=== PATIENT | female | born 1995 | race Caucasian/White ===

== ENCOUNTER 2017-10-15 18:12 | Emergency (ER) | payer BC ==
[~2017-10-15] VITALS: Ht 160 cm; Wt 80.9 kg
[~2017-10-15 18:12] MED LIST: AMITRIPTYLINE H10 MG PO; BENTYL20 MG PO; Benadryl IV; Benadryl PO; DOXYCYCLINE HYC50 MG PO; FLEXERIL10 MG PO; INDERAL20 MG PO; MACROBID100 MG PO; MIRALAX17 GM PO; NAPROSYN375 MG PO; NAPROSYN500 MG PO; ONDANSETRON ODT4 MG PO; PERCOCET 5/31 TABLET PO; PHENERGAN25 MG PR; PROAIR HFA8.5 GM IH; PROMETHAZINE HC25 M1 PO; PROPRANOLOL HCL10 MG PO; TRAMADOL HCL50 MG PO; TRI-ESTARYLLA1 EACH PO; ZOFRAN ODT4 MG PO; ZOFRAN4 MG PO; predniSONE PO
[2017-10-15 18:45] LABS: HEMATOCRIT 43.2 % (36.0-46.0); HEMOGLOBIN 15.4 G/DL (11.9-15.5); MCH 30.9 PG (29.0-34.0); MCHC 35.6 G/DL (30.0-36.0); MCV 86.7 FL (83-99); PLATELET COUNT 260 K/uL (156-360); RBC DIS.WIDTH-CV 12.1 % (11.8-14.6); RBC DIS.WIDTH-SD 38.5 % (39-53); RED BLOOD COUNT 4.98 M/uL (3.80-5.20); WHITE BLOOD COUNT 6.3 K/uL (4.1-10.2)
[2017-10-15 18:54] LABS: ALBUMIN 4.6 g/dL (3.2-4.8)
[2017-10-15 18:55] LABS: CHLORIDE 106 mEq/L (99-109); POTASSIUM 3.4 mEq/L (3.7-5.4); SODIUM 141 mEq/L (136-147)
[2017-10-15 18:57] LABS: GLUCOSE 91 mg/dL (70-99); TOTAL PROTEIN 7.7 g/dL (6.4-8.3)
[2017-10-15 18:59] LABS: TOTAL BILIRUBIN 0.6 mg/dL (0.0-1.0)
[2017-10-15 19:00] LABS: ALKALINE PHOSPHATASE 108 IU/L (3-129)
[2017-10-15 19:01] LABS: CREATININE 0.8 mg/dL (0.6-1.3); GFR ESTIMATE (CALCULATED) > 59 mL/min/
[2017-10-15 19:02] LABS: AST (GOT) 16 IU/L (2-34); UREA NITROGEN (BUN) 8 mg/dL (9-23)
[2017-10-15 19:04] LABS: ALT (GPT) 17 IU/L (3-49)
[2017-10-15 19:12] LABS: QUANTITATIVE HCG < 4.0 MIU/ML
[2017-10-15 19:56] LABS: APPEARANCE CLEAR ((CLEAR)); BILIRUBIN NEGATIVE; BLOOD NEGATIVE; COLOR YELLOW ((YELLOW)); GLUCOSE (STRIP) NEGATIVE; KETONES 5; LEUKOCYTES NEGATIVE; NITRITE NEGATIVE; PROTEIN (STRIP) NEGATIVE; SPECIFIC GRAVITY 1.015 (1.000-1.030); UCUL ADDED? NO; UROBILINOGEN 0.2 MG/DL (0.2-1.0)
[2017-10-15] MEDS ORDERED: PROMETHAZINE HC25 M1 PO (22:22)
[2017-10-15 22:23] VITALS: BP 112/86
== END 2017-10-15 22:35 | disposition home or self-care (01) ==
LOC: EME 18:12
DX: R10.30 Lower abdominal pain, unspecified (principal); J45.909 Unspecified asthma, uncomplicated; Z88.0 Allergy status to penicillin; Z88.1 Allergy status to other antibiotic agents; Z88.5 Allergy status to narcotic agent; Z88.2 Allergy status to sulfonamides; Z88.8 Allergy status to other drugs, medicaments and biological substances
CPT/HCPCS: 74177; 80053; 81003; 84702; 85027; 99281; 99284; J1885; J2405; J3010; J7030